=== PATIENT | female | born 1965 | race Caucasian/White ===

== ENCOUNTER 2018-07-04 14:21 | Inpatient (IN) | payer MEDICARE, MEDICAID ==
[2018-07-04 14:33] VITALS: BMI 27.4
--- NOTE | 2018-07-04 14:52 | ED PDOC ---
Arrival/HPI - General Chief Complaint: Palpitations Time Seen by Provider: 07/04/18 14:30 Historian: Patient - History of Present Illness Narrative History of Present Illness (Text): 07/04/18 14:48 52 year old female, with past history of somatoform disorder, presents to the ED accompanied by family for evaluation of palpitations since last week. As per family, patient recently had an increase in medication dosage, Clozapine 75mg 125mg and has been experiencing the symptoms since then. Patient additionally reports headache and constipation. Patient denies any fevers, chills, dizziness, chest pain, shortness of breath, dyspnea on exertion, diaphoresis, nausea, vomiting, diarrhea, back pain, neck pain, or any other complaints. Time/Duration: 1 week Symptom Onset: Gradual Symptom Course: Unchanged Activities at Onset: Light Context: Home Past Medical History - Provider Review Nursing Documentation Reviewed: Yes - Infectious Disease Hx of Infectious Diseases: None - Tetanus Immunization Tetanus Immunization: Unknown - Cardiac Hx Pacemaker: No - Pulmonary Hx Tuberculosis: No - Neurological Hx Paralysis: No - HEENT Hx HEENT Disorder: No Hx Blind: No Hx Cataracts: No Hx Deafness: No Hx Difficulty Chewing: No Hx Epistaxis: No Hx Glaucoma: No Hx Macular Degeneration: No - Renal Hx Renal Failure: No - Endocrine/Metabolic Hx Hyperthyroidism: No Hx Hypothyroidism: No - Hematological/Oncological Hx Blood Transfusions: No Hx Blood Transfusion Reaction: No - Integumentary Hx Dermatological Disorder: No Hx Basal Cell Carcinoma: No Hx Eczema: No Hx Melanoma: No Hx Psoriasis: No Hx Squamous Cell Carcinoma: No - Musculoskeletal/Rheumatological Hx Musculoskeletal Disorders: No - Gastrointestinal Hx Gastrointestinal Disorders: No Hx Crohn's Disease: No Hx Diverticulitis: No Hx Gastroesophageal Reflux: Yes Hx Gastrointestinal Ulcer: No Hx Liver Failure: No - Genitourinary/Gynecological Hx Genitourinary Disorders: No Hx Reproductive Disorders: No - Psychiatric Hx Emotional Abuse: No Hx Physical Abuse: No Hx Schizophrenia: Yes Hx Substance Use: No - Past Surgical History Past Surgical History: No Previous - Surgical History Hx Amputation: No Hx Appendectomy: No Hx Cholecystectomy: No Hx Gastric Bypass Surgery: No Hx Hysterectomy: No Hx Inguinal Hernia Repair: No Hx Joint Replacement: No Hx Kidney Transplant: No Hx Liver Transplant: No Hx Mastectomy: No Hx Open Heart Surgery: No Hx Orthopedic Surgery: No Hx Splenectomy: No Hx Valve Replacement: No - Anesthesia Hx Anesthesia Reactions: No Hx Malignant Hyperthermia: No - Suicidal Assessment Feels Threatened In Home Enviroment: No Family/Social History - Physician Review Nursing Documentation Reviewed: Yes Family/Social History: No Known Family HX Smoking Status: Never Smoked Hx Alcohol Use: No Hx Substance Use: No Hx Substance Use Treatment: No Allergies/Home Meds Allergies/Adverse Reactions: Allergies No Known Allergies Allergy (Verified 11/10/11 16:36) Home Medications: Home Meds Medication Instructions Recorded Confirmed Acetaminophen/Butalbital/Caf 1 tab PO Q6H PRN 07/04/18 07/04/18 [Fioricet] Clozapine [Clozapine Odt] 1 tab PO HS 07/04/18 07/04/18 Divalproex [Depakote DR] 1 tab PO Q12H 07/04/18 07/04/18 Gabapentin [Neurontin] 125 mg PO HS 07/04/18 07/04/18 LORazepam [Ativan] 1 tab PO BID 07/04/18 07/04/18 Lactulose [Generlac] 10 g PO PRN PRN 07/04/18 07/04/18 Venlafaxine [Effexor] 1 tab PO DAILY 07/04/18 07/04/18 traZODone [Desyrel] 1 tab PO HS PRN 07/04/18 07/04/18 Review of Systems - Physician Review All systems were reviewed & negative as marked: Yes - Review of Systems Constitutional: absent: Fevers Respiratory: Cough. absent: SOB Cardiovascular: Palpitations. absent: Chest Pain Gastrointestinal: absent: Abdominal Pain, Diarrhea, Nausea, Vomiting Genitourinary Female: absent: Dysuria, Urine Output Changes Musculoskeletal: absent: Back Pain, Neck Pain Skin: absent: Rash Neurological: Headache. absent: Dizziness, Focal Weakness, Speech Changes Endocrine: absent: Diaphoresis Hemo/Lymphatic: absent: Adenopathy Psychiatric: absent: Anxiety Physical Exam - Physical Exam Narrative Physical Exam (Text): 07/04/18 14:54 Gen: VS reviewed, alert, well developed, well nourished, nontoxic, mild distress. ENT: normal pharynx. Eye: EOMI, PERRL. Neck: no JVD, supple, no adenopathy. CV: regular rate, regular rhythm, no rubs, no murmur, no gallops, S1, S2, pulses equal and strong. Pulm: no distress, clear to auscultation, no wheeze, no rhonchi, breath sounds equal, no rales. Abd: soft, nontender, no guarding, no rebound, no rigidity, normal bowel sounds. Ext: no edema. Skin: good color, no rash, no cyanosis. Psych: responds appropriately to questions, bizarre affect. Neuro: oriented x 3, CN2-12 intact grossly, motor intact, sensation intact. Vital Signs Reviewed: Yes Vital Signs Temp Pulse Resp BP Pulse Ox 07/04/18 14:33 97.8 F 63 18 132/80 98 Temperature: Afebrile Blood Pressure: Normal Pulse: Regular Respiratory Rate: Normal Appearance: Positive for: Well-Appearing, Non-Toxic, Comfortable Pain Distress: None Mental Status: Positive for: Alert and Oriented X 3 Medical Decision Making ED Course and Treatment: 07/04/18 14:44 Impression: 52 year old female presents to the Emergency department for evaluation of palpitations. Plan: -- EKG -- Labs -- Chest X-ray -- X-ray Abdomen -- Reassess and disposition Prior Visits: Notes and results from previous visits were reviewed. Progress Notes: 07/04/18 16:[address] butler to her service. patient to be admitted for chest pain and palpitations, rule out acs. Patient remained chest pain free throughout ED course. - RAD Interpretation Radiology Orders: 07/04/18 14:45 CHEST PORTABLE [RAD] Stat 07/04/18 14:46 ABDOMEN (FLAT PLATE) 1VIEW [RAD] Stat Map Plotter: ED Physician - EKG Interpretation EKG Interpretation (Text): 07/04/18 15:26 ekg my read: sinus rhythm at 80 bpm, nml qrs, nml axis, nonspecific t wave abn Interpreted by ED Physician: Yes - Scribe Statement The provider has reviewed the documentation as recorded by the Hollyibpadmini Garza. All medical record entries made by the Hollyibe were at my direction and personally dictated by me. I have reviewed the chart and agree that the record accurately reflects my personal performance of the history, physical exam, medical decision making, and the department course for this patient. I have also personally directed, reviewed, and agree with the discharge instructions and disposition. Disposition/Present on Arrival - Present on Arrival Any Indicators Present on Arrival: No History of DVT/PE: No History of Uncontrolled Diabetes: No Urinary Catheter: No History of Decub. Ulcer: No History Surgical Site Infection Following: None - Disposition Have Diagnosis and Disposition been Completed?: Yes Diagnosis: Chest pain Disposition: HOSPITALIZED Disposition Time: 16:10 Patient Plan: Observation Patient Problems: Current Active Problems Problem Status Onset Chest pain Acute Condition: STABLE Discharge Instructions (ExitCare): Chest Pain (ED) Referrals: Cyndi Butler MD [Primary Care Provider] - Follow up with primary Forms: [facility] (Croatian)
[2018-07-04 15:07] LABS: BASO # 0.01 K/mm3 (0.0-2.0); BASO % 0.1 % (0.0-3.0); EOS % 0.1 % (1.5-5.0); HEMOGLOBIN 13.2 g/dL (12.0-16.0); LYMPH # 1.3 (1.2-3.4); LYMPH % 17.2 % (22.0-35.0); MEAN CELL VOLUME 92.3 fl (80.0-105.0); MEAN CORPUSCULAR HEMOGLOBIN 30.1 pg (25.0-35.0); MEAN CORPUSCULAR HGB CONC 32.6 g/dl (31.0-37.0); MEAN PLATELET VOLUME 9.8 fl (7.0-11.0); MONO # 0.5 (0.1-0.6); MONO % 6.6 % (1.0-6.0); RBC 4.39 10^6/uL (3.5-6.1); RED CELL DISTRIBUTION WIDTH 14.2 % (11.5-14.5); WHITE BLOOD COUNT 7.4 10^3/uL (4.5-11.0)
[2018-07-04 15:10] LABS: ALB/GLOB RATIO 1.3 (1.1-1.8); ALBUMIN 4.5 g/dL (3.0-4.8); ALT/SGPT 44 U/L (7-56); AST/SGOT 30 U/L (14-36); BLOOD UREA NITROGEN 18 mg/dL (7-21); CALCIUM 9.7 mg/dL (8.4-10.5); GFR NON-AFRICAN AMERICAN > 60; LIPASE 40 U/L (23-300)
[2018-07-04 15:11] LABS: D DIMER < 200 ng/mlDDU (0-243); INR 1.05; PARTIAL THROMBOPLASTIN TIME 32.2 Seconds (26.9-38.3); PROTHROMBIN TIME 11.6 SECONDS (9.4-12.5)
[2018-07-04 15:21] LABS: TROPONIN I < 0.01 ng/mL
--- NOTE | 2018-07-04 17:58 | CARD ---
APPROVED REPORT Date of service: 07/04/2018 EKG Measurement Heart [id number] <Conclusion> Sinus rhythm with marked sinus arrhythmia NDSTT abnormalities Borderline ECG
--- NOTE | 2018-07-04 18:07 | RAD ---
Date of service: 07/04/2018 PROCEDURE: CHEST RADIOGRAPH, 1 VIEW HISTORY: chest pain COMPARISON: 01/03/2013 FINDINGS: LUNGS: Clear. PLEURA: No pneumothorax or pleural fluid seen. CARDIOVASCULAR: No aortic atherosclerotic calcification present. Normal. OSSEOUS STRUCTURES: No significant abnormalities. VISUALIZED UPPER ABDOMEN: Normal. OTHER FINDINGS: None. IMPRESSION: No active disease.No significant interval change compared to the prior examination(s).
--- NOTE | 2018-07-04 18:11 | RAD ---
Date of service: 07/04/2018 HISTORY: Constipation COMPARISON: None available. TECHNIQUE: 1 view obtained. FINDINGS: BOWEL: Normal. No obstruction. No free air. BONES: Normal. OTHER FINDINGS: None. IMPRESSION: No significant or acute findings to account for/ related to the clinical presentation.
[2018-07-04 22:51] LABS: IRON 100 ug/dL (45-180)
[2018-07-04 22:53] LABS: HDL CHOLESTEROL 82 mg/dL (29-60)
[2018-07-04 23:01] LABS: % IRON SATURATION 24 % (20-55); TOTAL IRON BINDING CAPACITY 424 ug/dL (265-497)
[2018-07-04 23:03] LABS: LDL CHOLESTEROL 132 mg/dL (0-129)
[2018-07-04 23:04] LABS: TROPONIN I < 0.01 ng/mL
[2018-07-04 23:09] LABS: CK MB% 1.5 % (2.5-3.0); CK-MB 5.5 ng/mL (0.0-3.6)
[2018-07-05 04:38] LABS: PH,URINE 6.5 (4.7-8.0); URINE APPEARANCE SL CLOUDY (CLEAR); URINE BILIRUBIN NEGATIVE (NEGATIVE); URINE BLOOD NEGATIVE (NEGATIVE); URINE COLOR YELLOW (YELLOW); URINE GLUCOSE (UA) NEGATIVE (NEGATIVE); URINE LEUKOCYTE ESTERASE SMALL Leu/uL (NEGATIVE); URINE PROTEIN NEGATIVE mg/dL (<30 mg/dL); URINE UROBILINOGEN 0.2 E.U./dL (<1 E.U./dL)
[2018-07-05 04:55] LABS: URINE BACTERIA OCC /hpf; URINE RBC 0 - 2 /hpf (0-2)
[2018-07-05 07:13] LABS: HEMOGLOBIN 12.5 g/dL (12.0-16.0); MEAN CELL VOLUME 92.2 fl (80.0-105.0); MEAN CORPUSCULAR HEMOGLOBIN 29.6 pg (25.0-35.0); MEAN CORPUSCULAR HGB CONC 32.1 g/dl (31.0-37.0); MEAN PLATELET VOLUME 9.6 fl (7.0-11.0); RBC 4.22 10^6/uL (3.5-6.1); RED CELL DISTRIBUTION WIDTH 14.6 % (11.5-14.5); WHITE BLOOD COUNT 7.6 10^3/uL (4.5-11.0)
[2018-07-05 07:25] LABS: BLOOD UREA NITROGEN 10 mg/dL (7-21); CALCIUM 9.3 mg/dL (8.4-10.5); GFR NON-AFRICAN AMERICAN > 60
--- NOTE | 2018-07-05 08:17 | HP ---
DATE OF EXAM: 07/04/2018 CHIEF COMPLAINT: Palpitation. HISTORY OF PRESENT ILLNESS: Ms. Francheska Stevens is a 52 years old female with past medical history of somatoform disorder, psychosis and schizophrenia who came to the emergency department accompanied with family for evaluation of palpitation since last week. As per family, the patient recently had increase in the medication dosage of clonazepam from 75 mg to [address] Valentino, appearing symptomatic since then. Patient additionally reports headache and constipation. Denies any fever, chills or dizziness. No chest pain, shortness of breath, dyspnea on exertion, diaphoresis, hematuria, or hematochezia. PAST MEDICAL HISTORY: As above. Gastroesophageal reflux disease. FAMILY HISTORY: Father and mother noncontributory. SOCIAL HISTORY: No smoking, no drugs, no ethanol. ALLERGIES: PATIENT IS NOT ALLERGIC WITH ANY MEDICATION. HOME MEDICATIONS: Duracid, clonazepam, Depakote, Neurontin, Ativan, lactulose, Effexor, trazodone. REVIEW OF SYSTEMS: Patient is seen around the bedside, looking comfortable except very anxious, has palpitation. No fever, no chills. No hematochezia. No headache, no dizziness. PHYSICAL EXAMINATION VITAL SIGNS: Temperature 97.8, pulse 63, respiratory 18, blood pressure 132/80, pulse oximetry 98%. HEENT: Head normocephalic, atraumatic. Eyes PERRLA. Extraocular muscles intact. Conjunctiva clear. Nose patent. NECK: Supple. No carotid bruit or thyromegaly. CHEST: Bilaterally symmetrical. HEART: S1, S2 positive. LUNGS: Clear to auscultation. ABDOMEN: Soft, bowel sounds normal. No organomegaly. EXTREMITIES: No edema, no cyanosis. NEUROLOGIC: Patient is awake, alert, follows simple commands. LABORATORY DATA: WBC 7.4, hemoglobin 13.2, hematocrit 40.5, platelets 256. Sodium 141, potassium 4.1, BUN 18, creatinine 0.5, glucose 153, troponin less than 0.01. ASSESSMENT AND PLAN: Ms. Francheska Stevens is a 52 years old lady with hyperglycemia, Dilantin level less than 3, patient has schizophrenia, gastroesophageal reflux disease, dyspepsia, migraine, came with palpitation, feeling not fine. Abdominal x-ray done. No significant or acute findings to account for related to the clinical presentation. Electrocardiogram studied by me. Chest x-ray; no active disease. No significant interval changes compared to the prior evaluation. Readmitted the patient. Started home medications. Psychiatric consult called with Dr. Thiago Valentino. Physical therapy. We will followup. Cyndi Butler MD [facility]
--- NOTE | 2018-07-05 12:18 | CP.PCM.CON ---
<Ping Marques - Last Filed: 07/05/18 16:37> History of Present Illness - History of Present Illness History of Present Illness: Gastroenterology Fellow/PGY6 Consult Note for Dr. Sanders 52 year old female with PMH of Somatoform disorder, Schizophrenia, Psychosis, and constipation presenting with palpitations. Patient and mother at bedside note onset of palpitations yesterday along with abdominal pain. Mother notes recent change to psychotropic one week ago in outpatient setting. Patient notes onset of lower abdominal pain after two formed bowel movements yesterday. Mother confirms it is similar to chronic intermittent bilateral lower abdominal pain that has been present most of patient 's adult life in association with constipation. Notes bowel movements are usually daily with intermittent bowel habit every 2-3 days that is relieved with Colace and prune juice as needed. Associated intermittent straining, small caliber stools, and incomplete evacuation. Mother confirms yesterday's bowel movements were after use of Colace due to no bowel movement for three days. Patient does not consume six serving of water and fiber daily. Denies nausea, vomiting, heartburn, acid reflux, indigestion, diarrhea, melena, hematochezia, unintentional weight loss, sick contacts, recent travel, or recent antibiotics. Prior EGD 12/2012 for similar symptoms documented in pathology report to show H pylori negative gastritis. [place] [facility] [place]. Family History- paternal uncle- stomach cancer, denies colon cancer Social History- denies tobacco, alcohol, illicit drug use Surgical History- right upper extremity ORIF Review of Systems - Review of Systems Review of Systems: 12-point review of systems negative except for as above Past Patient History - Infectious Disease Hx of Infectious Diseases: None - Tetanus Immunizations Tetanus Immunization: Unknown - Past Social History Smoking Status: Never Smoked - CARDIAC Hx Pacemaker: No - PULMONARY Hx Tuberculosis: No - NEUROLOGICAL HX Cerebrovascular Accident: No Hx Seizures: No - HEENT Hx HEENT Problems: No Hx Blind: No Hx Cataracts: No Hx Deafness: No Hx Difficulty Chewing: No Hx Epistaxis: No Hx Glaucoma: No Hx Macular Degeneration: No - RENAL Hx Renal Failure: No - ENDOCRINE/METABOLIC Hx Hyperthyroidism: No Hx Hypothyroidism: No - HEMATOLOGICAL/ONCOLOGICAL Hx Cancer: No Hx Human Immunodeficiency Virus (HIV): No - INTEGUMENTARY Hx Dermatological Problems: No Hx Basil Cell: No Hx Eczema: No Hx Melanoma: No Hx Psoriasis: No Hx Squamous Cell: No - MUSCULOSKELETAL/RHEUMATOLOGICAL Hx Falls: No - GASTROINTESTINAL Hx Gastrointestinal Disorders: No Hx Crohn's Disease: No Hx Diverticulitis: No Hx Gastroesophageal Reflux: Yes Hx Liver Failure: No - GENITOURINARY/GYNECOLOGICAL Hx Genitourinary Disorders: No - PSYCHIATRIC Hx Emotional Abuse: No Hx Physical Abuse: No Hx Schizophrenia: Yes Hx Substance Use: No - SURGICAL HISTORY Hx Amputation: No Hx Appendectomy: No Hx Cholecystectomy: No Hx Gastric Bypass Surgery: No Hx Hysterectomy: No Hx Joint Replacement: No Hx Kidney Transplant: No Hx Liver Transplant: No Hx Mastectomy: No Hx Open Heart Surgery: No Hx Orthopedic Surgery: No Hx Splenectomy: No Hx Valve Replacement: No - ANESTHESIA Hx Anesthesia Reactions: No Hx Malignant Hyperthermia: No Meds Allergies/Adverse Reactions: Allergies Allergy/AdvReac Type Severity Reaction Status Date / Time No Known Allergies Allergy Verified 11/10/11 16:36 - Medications Medications: Current Medications Clozapine (Clozaril) 100 mg PO HS [facility]; Protocol Last Admin: 07/04/18 21:57 Dose: 100 mg Divalproex Sodium (Depakote Dr(*Bid*)) 500 mg PO BID [facility]; Protocol Famotidine (Pepcid) 40 mg PO HS [facility] Last Admin: 07/05/18 01:05 Dose: 40 mg Gabapentin (Neurontin) 100 mg PO HS [facility]; Protocol Last Admin: 07/04/18 21:57 Dose: 100 mg Lorazepam (Ativan) 0.5 mg PO BID [facility]; Protocol Last Admin: 07/05/18 09:55 Dose: 0.5 mg Ondansetron HCl (Zofran Inj) 4 mg IVP Q6 PRN PRN Reason: Nausea/Vomiting Trazodone HCl (Desyrel) 50 mg PO HS [facility] Last Admin: 07/04/18 21:58 Dose: 50 mg Venlafaxine HCl (Effexor) 37.5 mg PO DAILY [facility] Last Admin: 07/05/18 09:55 Dose: 37.5 mg Physical Exam - Constitutional Appears: Non-toxic, No Acute Distress - Head Exam Head Exam: ATRAUMATIC, NORMOCEPHALIC - Eye Exam Eye Exam: EOMI, PERRL. absent: Scleral icterus Pupil Exam: absent: Miosis, Mydriatic - ENT Exam ENT Exam: Mucous Membranes Moist, Normal Oropharynx - Neck Exam Neck exam: Positive for: Full Rom, Normal Inspection - Respiratory Exam Respiratory Exam: Clear to Auscultation Bilateral. absent: Rales, Rhonchi, Wheezes - Cardiovascular Exam Cardiovascular Exam: RRR, +S1, +S2. absent: Gallop, Rubs - GI/Abdominal Exam GI & Abdominal Exam: Normal Bowel Sounds, Soft, Tenderness. absent: Distended, Firm, Guarding, Organomegaly, Rebound, Rigid Additional comments: bilateral lower quadrant tenderness to palpation - Extremities Exam Extremities exam: Positive for: normal inspection - Neurological Exam Neurological exam: Alert - Psychiatric Exam Psychiatric exam: Anxious - Skin Skin Exam: Dry, Intact, Normal Color, Warm Results - Vital Signs Recent Vital Signs: Last Vital Signs Temp 98 F 07/05/18 12:00 Pulse 103 H 07/05/18 12:00 Resp 20 07/05/18 12:00 BP 111/76 07/05/18 12:00 Pulse Ox 98 07/05/18 05:09 - Labs Result Diagrams: 07/05/18 06:45 07/05/18 06:45 Labs: Laboratory Results - last 24 hr 07/04/18 07/04/18 07/04/18 14:50 14:50 14:50 WBC 7.4 RBC 4.39 Hgb 13.2 Hct 40.5 MCV 92.3 MCH 30.1 MCHC 32.6 RDW 14.2 Plt Count 256 MPV 9.8 Neut % (Auto) 76.0 H Lymph % (Auto) 17.2 L Ashe % (Auto) 6.6 H Eos % (Auto) 0.1 L Baso % (Auto) 0.1 Lymph # (Auto) 1.3 Ashe # (Auto) 0.5 Eos # (Auto) 0.0 Baso # (Auto) 0.01 Absolute Neuts (auto) 5.65 PT 11.6 INR 1.05 APTT 32.2 D-Dimer, Quantitative < 200 Sodium 141 Potassium 4.1 Chloride 106 Carbon Dioxide 25 Anion Gap 14 BUN 18 Creatinine 0.5 L Est GFR ( Amer) > 60 Est GFR (Non-Af Amer) > 60 POC Glucose (mg/dL) Random Glucose 100 Calcium 9.7 Magnesium 2.2 Iron TIBC % Saturation Total Bilirubin 0.3 AST 30 ALT 44 Alkaline Phosphatase 63 Lactate Dehydrogenase Total Creatine Kinase CK-MB (CK-2) CK-MB (CK-2) % Troponin I < 0.01 Total Protein 7.8 Albumin 4.5 Globulin 3.3 Albumin/Globulin Ratio 1.3 Triglycerides Cholesterol LDL Cholesterol Direct HDL Cholesterol Lipase 40 TSH 3rd Generation Urine Color Urine Appearance Urine pH Ur Specific Mozier Urine Protein Urine Glucose (UA) Urine Ketones Urine Blood Urine Nitrate Urine Bilirubin Urine Urobilinogen Ur Leukocyte Esterase Urine RBC Urine WBC Ur Epithelial Cells Urine Bacteria Phenytoin 07/04/18 07/04/18 07/04/18 16:00 16:00 19:34 WBC RBC Hgb Hct MCV MCH MCHC RDW Plt Count MPV Neut % (Auto) Lymph % (Auto) Ashe % (Auto) Eos % (Auto) Baso % (Auto) Lymph # (Auto) Ashe # (Auto) Eos # (Auto) Baso # (Auto) Absolute Neuts (auto) PT INR APTT D-Dimer, Quantitative Sodium Potassium Chloride Carbon Dioxide Anion Gap BUN Creatinine Est GFR ( Amer) Est GFR (Non-Af Amer) POC Glucose (mg/dL) 163 H Random Glucose Calcium Magnesium Iron TIBC % Saturation Total Bilirubin AST ALT Alkaline Phosphatase Lactate Dehydrogenase Total Creatine Kinase CK-MB (CK-2) CK-MB (CK-2) % Troponin I Total Protein Albumin Globulin Albumin/Globulin Ratio Triglycerides Cholesterol LDL Cholesterol Direct HDL Cholesterol Lipase TSH 3rd Generation 1.31 Urine Color Urine Appearance Urine pH Ur Specific Mozier Urine Protein Urine Glucose (UA) Urine Ketones Urine Blood Urine Nitrate Urine Bilirubin Urine Urobilinogen Ur Leukocyte Esterase Urine RBC Urine WBC Ur Epithelial Cells Urine Bacteria Phenytoin < 3 L 07/04/18 07/04/18 07/05/18 22:30 22:30 04:25 WBC RBC Hgb Hct MCV MCH MCHC RDW Plt Count MPV Neut % (Auto) Lymph % (Auto) Ashe % (Auto) Eos % (Auto) Baso % (Auto) Lymph # (Auto) Ashe # (Auto) Eos # (Auto) Baso # (Auto) Absolute Neuts (auto) PT INR APTT D-Dimer, Quantitative Sodium Potassium Chloride Carbon Dioxide Anion Gap BUN Creatinine Est GFR ( Amer) Est GFR (Non-Af Amer) POC Glucose (mg/dL) Random Glucose Calcium Magnesium Iron 100 TIBC 424 % Saturation 24 Total Bilirubin AST ALT Alkaline Phosphatase Lactate Dehydrogenase 485 Total Creatine Kinase 377 H CK-MB (CK-2) 5.5 H CK-MB (CK-2) % 1.5 L Troponin I < 0.01 Total Protein Albumin Globulin Albumin/Globulin Ratio Triglycerides 130 Cholesterol 267 H LDL Cholesterol Direct 132 H HDL Cholesterol 82 H Lipase TSH 3rd Generation Urine Color Yellow Urine Appearance Sl cloudy Urine pH 6.5 Ur Specific Mozier <= 1.005 Urine Protein Negative Urine Glucose (UA) Negative Urine Ketones Negative Urine Blood Negative Urine Nitrate Negative Urine Bilirubin Negative Urine Urobilinogen 0.2 Ur Leukocyte Esterase Small H Urine RBC 0 - 2 Urine WBC 2 - 5 Ur Epithelial Cells 3 - 4 Urine Bacteria Occ Phenytoin 07/05/18 07/05/18 07/05/18 06:45 06:45 06:45 WBC 7.6 RBC 4.22 Hgb 12.5 Hct 38.9 MCV 92.2 MCH 29.6 MCHC 32.1 RDW 14.6 H Plt Count 256 MPV 9.6 Neut % (Auto) Lymph % (Auto) Ashe % (Auto) Eos % (Auto) Baso % (Auto) Lymph # (Auto) Ashe # (Auto) Eos # (Auto) Baso # (Auto) Absolute Neuts (auto) PT INR APTT D-Dimer, Quantitative Sodium 141 Potassium 3.5 L Chloride 106 Carbon Dioxide 26 Anion Gap 12 BUN 10 Creatinine 0.5 L Est GFR ( Amer) > 60 Est GFR (Non-Af Amer) > 60 POC Glucose (mg/dL) Random Glucose 92 Calcium 9.3 Magnesium Iron TIBC % Saturation Total Bilirubin AST ALT Alkaline Phosphatase Lactate Dehydrogenase Total Creatine Kinase CK-MB (CK-2) CK-MB (CK-2) % Troponin I Total Protein Albumin Globulin Albumin/Globulin Ratio Triglycerides Cholesterol LDL Cholesterol Direct HDL Cholesterol Lipase TSH 3rd Generation 2.68 Urine Color Urine Appearance Urine pH Ur Specific Mozier Urine Protein Urine Glucose (UA) Urine Ketones Urine Blood Urine Nitrate Urine Bilirubin Urine Urobilinogen Ur Leukocyte Esterase Urine RBC Urine WBC Ur Epithelial Cells Urine Bacteria Phenytoin Assessment & Plan - Assessment and Plan (Free Text) Assessment: 52 year old female with PMH of Somatoform disorder, Schizophrenia, Psychosis, and constipation presenting with palpitations. GI consultation for abdominal pain. Prior EGD 12/2012 for similar symptoms documented in pathology report to show H pylori negative gastritis. [place] [facility] [place]. Plan: -likely related to constipation -rule out acute pathology given persistent pain on evaluation and physical exam -ordered CT A/P PO/IV contrast -prior CT A/P 12/2012- constipation, no acute pathology -recommend bowel regimen- Miralax daily -counselled on increased fiber and water intake -will follow clinical course <Aydin Sanders V - Last Filed: 07/05/18 23:34> Meds - Medications Medications: Current Medications Atenolol (Tenormin) 25 mg PO DAILY [facility] Last Admin: 07/05/18 14:14 Dose: 25 mg Atorvastatin Calcium (Lipitor) 20 mg PO DIN [facility] Last Admin: 07/05/18 17:51 Dose: 20 mg Clozapine (Clozaril) 100 mg PO HS [facility]; Protocol Last Admin: 07/05/18 22:01 Dose: 100 mg Divalproex Sodium (Depakote Dr(*Bid*)) 500 mg PO BID [facility]; Protocol Last Admin: 07/05/18 17:51 Dose: 500 mg Famotidine (Pepcid) 40 mg PO HS [facility] Last Admin: 07/05/18 22:01 Dose: 40 mg Gabapentin (Neurontin) 100 mg PO HS [facility]; Protocol Last Admin: 07/05/18 22:01 Dose: 100 mg Lorazepam (Ativan) 0.5 mg PO BID [facility]; Protocol Last Admin: 07/05/18 17:52 Dose: 0.5 mg Ondansetron HCl (Zofran Inj) 4 mg IVP Q6 PRN PRN Reason: Nausea/Vomiting Trazodone HCl (Desyrel) 50 mg PO HS [facility] Last Admin: 07/05/18 22:01 Dose: 50 mg Venlafaxine HCl (Effexor) 37.5 mg PO DAILY [facility] Last Admin: 07/05/18 09:55 Dose: 37.5 mg Results - Vital Signs Recent Vital Signs: Last Vital Signs Temp 98.1 F 07/05/18 18:00 Pulse 68 07/05/18 22:00 Resp 20 07/05/18 18:00 BP 122/84 07/05/18 18:00 Pulse Ox 99 07/05/18 18:00 - Labs Result Diagrams: 07/05/18 06:45 07/05/18 06:45 Labs: Laboratory Results - last 24 hr 07/04/18 07/04/18 07/05/18 22:30 22:30 04:25 WBC RBC Hgb Hct MCV MCH MCHC RDW Plt Count MPV Sodium Potassium Chloride Carbon Dioxide Anion Gap BUN Creatinine Est GFR ( Amer) Est GFR (Non-Af Amer) Random Glucose Hemoglobin A1c 5.6 Calcium Vitamin B12 608 Folate 17.3 TSH 3rd Generation Urine Color Yellow Urine Appearance Sl cloudy Urine pH 6.5 Ur Specific Mozier <= 1.005 Urine Protein Negative Urine Glucose (UA) Negative Urine Ketones Negative Urine Blood Negative Urine Nitrate Negative Urine Bilirubin Negative Urine Urobilinogen 0.2 Ur Leukocyte Esterase Small H Urine RBC 0 - 2 Urine WBC 2 - 5 Ur Epithelial Cells 3 - 4 Urine Bacteria Occ 07/05/18 07/05/18 07/05/18 06:45 06:45 06:45 WBC 7.6 RBC 4.22 Hgb 12.5 Hct 38.9 MCV 92.2 MCH 29.6 MCHC 32.1 RDW 14.6 H Plt Count 256 MPV 9.6 Sodium 141 Potassium 3.5 L Chloride 106 Carbon Dioxide 26 Anion Gap 12 BUN 10 Creatinine 0.5 L Est GFR ( Amer) > 60 Est GFR (Non-Af Amer) > 60 Random Glucose 92 Hemoglobin A1c Calcium 9.3 Vitamin B12 Folate TSH 3rd Generation 2.68 Urine Color Urine Appearance Urine pH Ur Specific Mozier Urine Protein Urine Glucose (UA) Urine Ketones Urine Blood Urine Nitrate Urine Bilirubin Urine Urobilinogen Ur Leukocyte Esterase Urine RBC Urine WBC Ur Epithelial Cells Urine Bacteria Attending/Attestation - Attestation I have fully participated in the care of the patient.: Yes I have reviewed all pertinent clinical information: Yes Notes (Text): The CT scan was reviewed. Discussed with the nursing staff and also with the GI fellow the CT showed a significant stool throughout the colon and a large distended bladder. Patient did void after the return from the CAT scan. The bladder scan done subsequently did not reveal any significant residue. Patient has been placed on MiraLAX . If there is no significant bowel movement,we will consider offering a gallon of GoLYTELY 07/05/18 23:30
[2018-07-05] MEDS ORDERED: Barium Sulfate Susp 2.1% w/v, 2.0% w/w 450 mL Bottle PO ONE (12:21)
[2018-07-05 13:29] LABS: FOLATE 17.3 ng/mL
[2018-07-05] MEDS ORDERED: Potassium Chloride 20 mEq ER Tab PO ONE (14:49)
[2018-07-05] MEDS ORDERED: Iohexol 350 MG/100 ML VIAL ONE (15:59)
--- NOTE | 2018-07-05 17:04 | CT ---
Date of service: 07/05/2018 PROCEDURE: CT Abdomen and Pelvis with contrast HISTORY: abdominal pain COMPARISON: None. TECHNIQUE: Contrast dose: 100 cc of Omni 350 Radiation dose: Total exam DLP = 479.41 mGy-cm. This CT exam was performed using one or more of the following dose reduction techniques: Automated exposure control, adjustment of the mA and/or kV according to patient size, and/or use of iterative reconstruction technique. FINDINGS: LOWER THORAX: Unremarkable. LIVER: Unremarkable. No gross lesion or ductal dilatation. GALLBLADDER AND BILE DUCTS: Unremarkable. PANCREAS: Unremarkable. No gross lesion or ductal dilatation. SPLEEN: Unremarkable. ADRENALS: Unremarkable. No mass. There is a 14 mm left adrenal nodule. KIDNEYS AND URETERS: Unremarkable. No hydronephrosis. No solid mass. VASCULATURE: Unremarkable. No aortic aneurysm. No aortic atherosclerotic calcification or mural plaque present. BOWEL: Unremarkable. No obstruction. No gross mural thickening. APPENDIX: Normal appendix. PERITONEUM: Unremarkable. No free fluid. No free air. LYMPH NODES: Unremarkable. No enlarged lymph nodes. BLADDER: Unremarkable. REPRODUCTIVE: Unremarkable. BONES: No acute fracture. OTHER FINDINGS: None. IMPRESSION: Unremarkable contrast enhanced CT of the abdomen and pelvis.
[2018-07-05] MEDS: Divalproex 500 mg DR(BID formulation) PO SCH (17:51)
--- NOTE | 2018-07-05 20:26 | PN ---
DATE: 07/05/2018 SUBJECTIVE: The patient is a 52-year-old female. The patient was seen and examined at the bedside on 07/05/2018. The patient is lying comfortably in the bed. Mother is at the bedside. Still sometimes having palpitation, sometimes having abdominal pain. No fever. No chills. No hematuria or hematochezia. No headache or dizziness. No chest pain or palpitation. PHYSICAL EXAMINATION: VITAL SIGNS: Temperature 98, pulse 102, highest pulse is 113, blood pressure 114/80, respiratory rate 20. HEENT: Head: Normocephalic, atraumatic. Eyes: PERRLA. Extraocular muscles intact. Conjunctiva clear. Nose patent. Mucous membranes moist. NECK: Supple. No carotid bruit or thyromegaly. CHEST: Bilaterally symmetrical. HEART: S1, S2 positive. LUNGS: Clear to auscultation. ABDOMEN: Soft, bowel sounds present. No organomegaly. EXTREMITIES: No edema, no cyanosis. NEUROLOGIC: The patient is awake and alert. Moving all 4 extremities. No focal deficits. MEDICATIONS: Ativan, clozapine, Depakote, trazodone, Effexor, Lipitor, Neurontin, Pepcid, atenolol, Zofran. LABORATORY DATA: White blood cells 7.6, hemoglobin 12.5, hematocrit 38.9, platelets 256. Sodium 141, potassium 3.5, BUN 10, creatinine 0.5, glucose 92. ASSESSMENT AND PLAN: Ms. Francheska Stevens is a 52-year-old lady with hypokalemia, replaced; hyperglycemia, hypercholesterolemia, abnormal CK-MB, history of schizophrenia. Consult called with Dr. Parsons for palpitation and tachycardia. Spoke to Dr. Dwyer cardio and Gastroenterology also for abdominal pain. Dr. Valentino is on the case, awaiting for his input. The patient has schizophrenia, gastroesophageal reflux disease, migraine, palpitation, abdominal pain, getting better but still there. Out of bed. Physical therapy. Gastrointestinal prophylaxis. Repeat labs. We will follow up. Cyndi Butler MD SOP[facility]
--- NOTE | 2018-07-06 00:06 | CON ---
DATE OF CONSULTATION: 07/05/2018 This consultation was being dictated without the aid of access to medical records, as both the computer and the dictation system ([employer]) are inaccessible/not working/yet again. HISTORY OF PRESENT ILLNESS: The patient is a 52-year-old female, well known to me, who had just returned to my service after a 6-year hiatus because she had been hospitalized at a [facility]. She now spends her weekends in a residential, attends a day program, goes home for weekends. She has a long history of somatization amongst others in an unfortunate way of redirecting whenever emotional distress she has. She can also be attention seeking. The patient presently is seeing a therapist, Floridalma Rothman. The medication that she has been maintained on, most recently, have not being given to her by Dr. Newton at the [facility] she attends are lorazepam 1 mg, Cogentin 1 mg b.i.d., Effexor 37.5 mg a.m., trazodone 50 mg at bedtime, gabapentin 200 mg t.i.d., Depakote 500 mg b.i.d., clozapine 125 mg daily. She had been hospitalized at [facility] on 05/05/2008 because of a relapse and was hospitalized for 2 weeks. They had stopped her medications, and she became more depressed and anxious. The patient also has a developmental delay, although she has been able to work at jobs many years ago. She has a concerned family including her mother and two sisters. Presently, the patient has a constrained affect, is complaining of generalized pain, but more specifically also in her abdomen and complaining of palpitations. Her mother informs me that throughout her several years stay in [place], she also had multiple aches, pains, etc. which she had before hospitalization. The unfortunate reality is that we are obligated to evaluate this patient keeping in mind that somatization is unfortunately a, oftentimes, major manifestation of her illness. 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 We will continue to monitor her with you. Thiago Valentino MD/ PhD
--- NOTE | 2018-07-06 01:43 | CON ---
DATE: 07/05/2018 LOCATION: The patient is in room 275, bed 2. REASON FOR CONSULTATION: Palpitations, tachycardia, history of high cholesterol. HISTORY OF PRESENT ILLNESS: A 52-year-old female that was brought to the emergency room with the history that patient was feeling sweating, shaking, and headache along with she was found to have sinus tachycardia. The patient also complained of palpitations. The patient is known case of high cholesterol and psychiatric problems, which included somatoform disorder, psychosis, and schizophrenia. The patient has been under of Dr. Valentino, psychiatrist. PAST MEDICAL HISTORY: Positive for high cholesterol, psychiatric problems, somatoform disorder, psychosis, schizophrenia, gastroesophageal reflux disease. SURGICAL HISTORY: The patient has surgery on the right elbow for fracture. PERSONAL HISTORY: Denies smoking. Denies drinking. ALLERGIES: NO KNOWN ALLERGIES. FAMILY HISTORY: Mother has high blood pressure. LIST OF HOME MEDICATIONS: The patient is on Clonazepam, Depakote, Neurontin, Ativan, Duracid, lactulose, Effexor, trazodone. REVIEW OF SYSTEMS: All the systems were reviewed, positives mentioned in the history and others were negative. PHYSICAL EXAMINATION VITAL SIGNS: Blood pressure 122/84, respirations 20, pulse 78, earlier pulse was 102 and 103, temperature 98.1. HEENT: Head is normocephalic. Eyes; pupils normal. Conjunctivae normal. Nose and throat normal. NECK: JVP low. Carotid equal. THORAX: AP diameter normal. LUNGS: Clear. CARDIOVASCULAR: S1, S2. ABDOMEN: Soft. No tenderness. No organomegaly. Bowel sounds normal. EXTREMITIES: No clubbing. No cyanosis. LABORATORY DATA: WBC 7.6, hemoglobin 12.5, hematocrit 38.9, platelet 226. Sodium 141, potassium 3.5, BUN 10, creatinine 0.5, total CPK 377. Troponin less than 0.01. Cholesterol 267, triglyceride 130, TSH 2.68. Chest x-ray; no active disease. EKG showed sinus rhythm with sinus arrhythmia, nonspecific ST-T changes. When the patient walks in the room she gets tachycardia, heart rate goes up to 120, 130. DIAGNOSES: Palpitations, high cholesterol, gastroesophageal reflux disease, psychiatric problems, history of somatoform disorder, psychosis, schizophrenia, hypokalemia. PLAN: The patient is already given potassium 20 mEq one dose. Started Lipitor 20 mg daily. Gabapentin 100 mg at bedtime, Pepcid 40 mg at bedtime. The patient is on Clozaril 100 mg at bedtime, Depakote 500 mg b.i.d., trazodone 50 mg bedtime, Effexor 37.5 mg p.o. daily. Since the patient has palpitation and also tachycardia, would add atenolol 25 mg p.o. daily starting today. Will order an echocardiogram and will do a lying down stress test also and IV Lexiscan stress test and will follow with you. Tom Dwyer MD
--- NOTE | 2018-07-06 06:49 | CP.PCM.PN ---
Subjective - Date & Time of Evaluation Date of Evaluation: 07/06/18 Time of Evaluation: 06:49 - Subjective Subjective: Tessa Amor, PGY2, GI Objective - Vital Signs/Intake and Output Vital Signs (last 24 hours): Temp Pulse Resp BP Pulse Ox 98.3 F 88 20 94/62 L 98 07/06/18 05:45 07/06/18 05:45 07/06/18 05:45 07/06/18 05:45 07/06/18 05:45 Intake and Output: 07/05/18 07/06/18 18:59 06:59 Intake Total 120 Balance 120 - Medications Medications: Current Medications Atenolol (Tenormin) 25 mg PO DAILY [facility] Last Admin: 07/05/18 14:14 Dose: 25 mg Atorvastatin Calcium (Lipitor) 20 mg PO DIN [facility] Last Admin: 07/05/18 17:51 Dose: 20 mg Clozapine (Clozaril) 100 mg PO HS [facility]; Protocol Last Admin: 07/05/18 22:01 Dose: 100 mg Divalproex Sodium (Depakote Dr(*Bid*)) 500 mg PO BID [facility]; Protocol Last Admin: 07/05/18 17:51 Dose: 500 mg Famotidine (Pepcid) 40 mg PO HS [facility] Last Admin: 07/05/18 22:01 Dose: 40 mg Gabapentin (Neurontin) 100 mg PO HS [facility]; Protocol Last Admin: 07/05/18 22:01 Dose: 100 mg Lorazepam (Ativan) 0.5 mg PO BID [facility]; Protocol Last Admin: 07/05/18 17:52 Dose: 0.5 mg Ondansetron HCl (Zofran Inj) 4 mg IVP Q6 PRN PRN Reason: Nausea/Vomiting Polyethylene Glycol (Miralax) 17 gm PO DAILY [facility] Trazodone HCl (Desyrel) 50 mg PO HS [facility] Last Admin: 07/05/18 22:01 Dose: 50 mg Venlafaxine HCl (Effexor) 37.5 mg PO DAILY [facility] Last Admin: 07/05/18 09:55 Dose: 37.5 mg - Labs Labs: 07/05/18 06:45 07/05/18 06:45 PT 11.6 SECONDS (9.4-12.5) 07/04/18 14:50 INR 1.05 07/04/18 14:50 APTT 32.2 Seconds (26.9-38.3) 07/04/18 14:50
[2018-07-06] MEDS ORDERED: Aminophylline 25 mg/ml Inj ONE (08:58)
--- NOTE | 2018-07-06 08:58 | CP.PCM.PN ---
Subjective - Date & Time of Evaluation Date of Evaluation: 07/06/18 Time of Evaluation: 06:25 - Subjective Subjective: Awake, alert, no distress Reason for consultation and follow up: Cardiac evaluation of palpitations, tachycardia and history of high cholesterol Seen and examined by me and Dr. Dwyer Objective - Vital Signs/Intake and Output Vital Signs (last 24 hours): Temp Pulse Resp BP Pulse Ox 98.3 F 88 20 94/62 L 98 07/06/18 05:45 07/06/18 05:45 07/06/18 05:45 07/06/18 05:45 07/06/18 05:45 Intake and Output: 07/06/18 07/06/18 06:59 18:59 Intake Total 120 Balance 120 - Medications Medications: Current Medications Atenolol (Tenormin) 25 mg PO DAILY [facility] Last Admin: 07/05/18 14:14 Dose: 25 mg Atorvastatin Calcium (Lipitor) 20 mg PO DIN [facility] Last Admin: 07/05/18 17:51 Dose: 20 mg Clozapine (Clozaril) 100 mg PO HS [facility]; Protocol Last Admin: 07/05/18 22:01 Dose: 100 mg Divalproex Sodium (Depakote Dr(*Bid*)) 500 mg PO BID [facility]; Protocol Last Admin: 07/05/18 17:51 Dose: 500 mg Famotidine (Pepcid) 40 mg PO HS [facility] Last Admin: 07/05/18 22:01 Dose: 40 mg Gabapentin (Neurontin) 100 mg PO HS [facility]; Protocol Last Admin: 07/05/18 22:01 Dose: 100 mg Lorazepam (Ativan) 0.5 mg PO BID [facility]; Protocol Last Admin: 07/05/18 17:52 Dose: 0.5 mg Ondansetron HCl (Zofran Inj) 4 mg IVP Q6 PRN PRN Reason: Nausea/Vomiting Polyethylene Glycol (Miralax) 17 gm PO DAILY [facility] Trazodone HCl (Desyrel) 50 mg PO HS [facility] Last Admin: 07/05/18 22:01 Dose: 50 mg Venlafaxine HCl (Effexor) 37.5 mg PO DAILY [facility] Last Admin: 07/05/18 09:55 Dose: 37.5 mg - Labs Labs: 07/05/18 06:45 07/05/18 06:45 PT 11.6 SECONDS (9.4-12.5) 07/04/18 14:50 INR 1.05 07/04/18 14:50 APTT 32.2 Seconds (26.9-38.3) 07/04/18 14:50 - Constitutional Appears: Non-toxic, No Acute Distress - Head Exam Head Exam: NORMAL INSPECTION, NORMOCEPHALIC - Eye Exam Eye Exam: Normal appearance Pupil Exam: NORMAL ACCOMODATION - ENT Exam ENT Exam: Mucous Membranes Moist, Normal Exam - Respiratory Exam Respiratory Exam: Decreased Breath Sounds, Clear to Ausculation Bilateral, NORMAL BREATHING PATTERN - Cardiovascular Exam Cardiovascular Exam: REGULAR RHYTHM, +S1, +S2 - GI/Abdominal Exam GI & Abdominal Exam: Soft, Normal Bowel Sounds - Extremities Exam Extremities Exam: Full ROM, Normal Capillary Refill - Neurological Exam Neurological Exam: Alert, Awake, Oriented x3 - Psychiatric Exam Psychiatric exam: Anxious - Skin Skin Exam: Dry, Normal Color, Warm Assessment and Plan - Assessment and Plan (Free Text) Assessment: A 52 year old feamle who came in to the ER due to palpitations. History of somatoform disorder, schizophrenia, GERD, high cholesterol. EKG showed NSR however when ambulating, heart rate goes up to 120-130's. Started on betablocker. Stress test and Echo today. Plan: For stress test today NPO post midnight For echo today Heart controlled at rest Blood pressure stable On Atenolol 25 mg daily,Lipitor 20 mg daily Continue current management Continue current medications Further recommendations after Stress test Will follow up Plan and treatment discussed with Dr. Dwyer
[2018-07-06] MEDS: Divalproex 500 mg DR(BID formulation) PO SCH ×3 (10:37→18:31)
[2018-07-06] MEDS: POLYETHYLENE GLYCOL 3350 17 GM/Dose PACKET PO SCH ×2 (10:38→11:40)
--- NOTE | 2018-07-06 11:09 | CP.PCM.PN ---
<Tessa Amor - Last Filed: 07/06/18 11:06> Subjective - Date & Time of Evaluation Date of Evaluation: 07/06/18 Time of Evaluation: 11:06 - Subjective Subjective: Tessa Amor, PGY2, GI Progress Note for Dr Sanders. Patient seen and examined at bedside. No acute events overnight. Patient reports BM yesterday night. Reports ongoing abdominal pain, denies nausea, vomiting, fevers, chills, diarrhea. Objective - Vital Signs/Intake and Output Vital Signs (last 24 hours): Temp Pulse Resp BP Pulse Ox 98.3 F 85 20 94/62 L 98 07/06/18 05:45 07/06/18 08:00 07/06/18 05:45 07/06/18 05:45 07/06/18 05:45 Intake and Output: 07/06/18 07/06/18 06:59 18:59 Intake Total 120 Balance 120 - Medications Medications: Current Medications Atenolol (Tenormin) 25 mg PO DAILY [facility] Last Admin: 07/06/18 10:38 Dose: Not Given Atorvastatin Calcium (Lipitor) 20 mg PO DIN [facility] Last Admin: 07/05/18 17:51 Dose: 20 mg Bisacodyl (Dulcolax) 5 mg PO ONCE ONE Stop: 07/06/18 16:01 Bisacodyl (Dulcolax) 5 mg PO ONCE ONE Stop: 07/07/18 08:01 Clozapine (Clozaril) 100 mg PO HS [facility]; Protocol Last Admin: 07/05/18 22:01 Dose: 100 mg Divalproex Sodium (Depakote Dr(*Bid*)) 500 mg PO BID [facility]; Protocol Last Admin: 07/06/18 10:37 Dose: Not Given Famotidine (Pepcid) 40 mg PO HS [facility] Last Admin: 07/05/18 22:01 Dose: 40 mg Gabapentin (Neurontin) 100 mg PO HS [facility]; Protocol Last Admin: 07/05/18 22:01 Dose: 100 mg Lorazepam (Ativan) 0.5 mg PO BID [facility]; Protocol Last Admin: 07/06/18 10:37 Dose: Not Given Ondansetron HCl (Zofran Inj) 4 mg IVP Q6 PRN PRN Reason: Nausea/Vomiting Polyethylene Glycol (Miralax) 17 gm PO DAILY [facility] Last Admin: 07/06/18 10:38 Dose: Not Given Trazodone HCl (Desyrel) 50 mg PO HS [facility] Last Admin: 07/05/18 22:01 Dose: 50 mg Venlafaxine HCl (Effexor) 37.5 mg PO DAILY [facility] Last Admin: 07/06/18 10:37 Dose: Not Given - Labs Labs: 07/05/18 06:45 07/05/18 06:45 PT 11.6 SECONDS (9.4-12.5) 07/04/18 14:50 INR 1.05 07/04/18 14:50 APTT 32.2 Seconds (26.9-38.3) 07/04/18 14:50 - Constitutional Appears: Non-toxic, No Acute Distress - Head Exam Head Exam: ATRAUMATIC, NORMOCEPHALIC - Eye Exam Eye Exam: EOMI, PERRL. absent: Conjunctival injection, Nystagmus, Scleral icterus Pupil Exam: NORMAL ACCOMODATION, PERRL. absent: Miosis, Mydriatic, Unequal - ENT Exam ENT Exam: Mucous Membranes Moist - Neck Exam Neck Exam: Full ROM - Respiratory Exam Respiratory Exam: Clear to Ausculation Bilateral, NORMAL BREATHING PATTERN. absent: Accessory Muscle Use, Wheezes, Respiratory Distress, Stridor - Cardiovascular Exam Cardiovascular Exam: RRR, +S1, +S2. absent: Murmur - GI/Abdominal Exam GI & Abdominal Exam: Soft, Tenderness (in bilateral lower quadrants), Normal Bowel Sounds. absent: Distended, Guarding, Rigid, Mass, Organomegaly, Rebound - Extremities Exam Extremities Exam: Normal Inspection. absent: Pedal Edema - Neurological Exam Neurological Exam: Alert, Awake, Oriented x3 - Psychiatric Exam Psychiatric exam: Normal Mood - Skin Skin Exam: Dry, Normal Color, Warm Assessment and Plan - Assessment and Plan (Free Text) Assessment: # Abdominal pain 2/2 likely chronic constipation, r/o ovarian/uterine pathology # Palpitations # Somatoform disorder # Schizophrenia - Prior EGD 12/2012 for similar symptoms documented in pathology report to show H pylori negative gastritis. [place] [facility] [place]. - CT A/P 12/2012- constipation, no acute pathology - ordered 1/2 gallon of Golytely with 2 dulcolax - ordered pelvic US, r/o uterine/ovarian pathology - If abdominal pain does not improve after bowel regimen and no organic cause found on pelvic US, will consider endoscopy. - counselled on increased fiber and water intake - Further recs per Dr Sanders. Case seen and discussed with Dr Sanders. <Aydin Sanders V - Last Filed: 07/06/18 22:24> Objective - Vital Signs/Intake and Output Vital Signs (last 24 hours): Temp Pulse Resp BP Pulse Ox 97.8 F 99 H 18 114/77 97 07/06/18 17:59 07/06/18 18:00 07/06/18 17:59 07/06/18 17:59 07/06/18 11:30 - Medications Medications: Current Medications Atenolol (Tenormin) 25 mg PO DAILY [facility] Last Admin: 07/06/18 11:41 Dose: 25 mg Atorvastatin Calcium (Lipitor) 20 mg PO DIN [facility] Last Admin: 07/06/18 18:30 Dose: 20 mg Bisacodyl (Dulcolax) 5 mg PO ONCE ONE Stop: 07/07/18 08:01 Clozapine (Clozaril) 100 mg PO HS [facility]; Protocol Last Admin: 07/06/18 21:38 Dose: 100 mg Divalproex Sodium (Depakote Dr(*Bid*)) 500 mg PO BID [facility]; Protocol Last Admin: 07/06/18 18:31 Dose: 500 mg Famotidine (Pepcid) 40 mg PO HS [facility] Last Admin: 07/06/18 21:38 Dose: 40 mg Gabapentin (Neurontin) 100 mg PO HS [facility]; Protocol Last Admin: 07/06/18 21:38 Dose: 100 mg Lorazepam (Ativan) 0.5 mg PO BID [facility]; Protocol Last Admin: 07/06/18 18:30 Dose: 0.5 mg Ondansetron HCl (Zofran Inj) 4 mg IVP Q6 PRN PRN Reason: Nausea/Vomiting Polyethylene Glycol (Miralax) 17 gm PO DAILY [facility] Last Admin: 07/06/18 11:40 Dose: 17 gm Trazodone HCl (Desyrel) 50 mg PO HS [facility] Last Admin: 07/06/18 21:38 Dose: 50 mg Venlafaxine HCl (Effexor) 37.5 mg PO DAILY [facility] Last Admin: 07/06/18 11:41 Dose: 37.5 mg - Labs Labs: 07/06/18 13:33 07/06/18 13:33 PT 11.6 SECONDS (9.4-12.5) 07/04/18 14:50 INR 1.05 07/04/18 14:50 APTT 32.2 Seconds (26.9-38.3) 07/04/18 14:50 Attending/Attestation - Attestation I have personally seen and examined this patient.: Yes I have fully participated in the care of the patient.: Yes I have reviewed all pertinent clinical information, including history, physical exam and plan: Yes Notes (Text): This is an addendum to the GI progress report dictated by the emergency medical technician basic. This patient was seen and evaluated along with the resident earlier today. Patient did have a bladder scan done which showed a no significant residual however it was found to be distended in the CAT scan. Significant constipation. On MiraLAX will start the patient on GoLYTELY half a gallon with the Dulcolax Also requested for a pelvic ultrasound and also an abdominal ultrasound to further evaluate his abdominal distention and discomfort. Patient may benefit from elective endoscopy evaluation continue PPI cardiac follow-up 07/06/18 22:22
[2018-07-06] MEDS ORDERED: NuLYTELY (NACL/NAHCO3/KCL/PEG) 4L PO ONE ×2 (13:00)
--- NOTE | 2018-07-06 13:05 | CP.PCM.PCO ---
Additional Comments - Additional Comments Additional Comments: 52 y/o F, PMHx somatoform disorder, schizophrenia, HLD, GERD arrived to ED with c/o palpitations. Family states, patient recently had an increase in medication dosage, Clozapine 75mg 125mg and has been experiencing the symptoms since then. Patient also reports headache and constipation. Cardiology consulted patient started on a beta-dain, stress test results and echo result pending, GI consulted placed on bowel regiment pelvis US pending, psychiatry note reviewed.
[2018-07-06 13:36] LABS: HEMOGLOBIN 12.7 g/dL (12.0-16.0); MEAN CELL VOLUME 94.6 fl (80.0-105.0); MEAN CORPUSCULAR HGB CONC 31.8 g/dl (31.0-37.0); MEAN PLATELET VOLUME 9.5 fl (7.0-11.0); RBC 4.23 10^6/uL (3.5-6.1); WHITE BLOOD COUNT 7.5 10^3/uL (4.5-11.0)
[2018-07-06 13:55] LABS: ALB/GLOB RATIO 1.4 (1.1-1.8); ALBUMIN 4.1 g/dL (3.0-4.8); ALT/SGPT 61 U/L (7-56); AST/SGOT 37 U/L (14-36); BLOOD UREA NITROGEN 11 mg/dL (7-21); CALCIUM 9.2 mg/dL (8.4-10.5); GFR NON-AFRICAN AMERICAN > 60
--- NOTE | 2018-07-06 14:12 | US ---
Date of service: 07/06/2018 HISTORY: abdominal pain, r/o ovarian/uterine abnormalities COMPARISON: None available. TECHNIQUE: Transabdominal pelvic ultrasound was performed FINDINGS: UTERUS: Measures 6.1 x 2.4 x 2.9 cm. Anteverted, normal in size and appearance. No fibroid or other mass lesion seen. ENDOMETRIUM: Measures 6.0 mm in diameter. Normal in appearance. CERVIX: No cervical abnormality identified. RIGHT OVARY: Measures 1.8 x 0.9 x 1.5 cm. No solid mass. Normal flow. LEFT OVARY: Measures 0.7 x 0.7 x 1.8 cm. No solid mass. Normal flow. FREE FLUID: No significant free fluid noted. OTHER FINDINGS: None. IMPRESSION: Unremarkable pelvic ultrasound.
[2018-07-06] MEDS ORDERED: Bisacodyl 5mg EC Tab PO ONE ×2 (16:00→18:00)
--- NOTE | 2018-07-06 21:50 | CARD ---
APPROVED REPORT Date of service: 07/06/2018 Protocol: LEXISCAN Test Type: Lexiscan Sestamibi Stress Test Attending Physician: Dr. Tom Dwyer Referring Physician: Dr. Cyndi Butler Test Indications: Palpitations, sinus tachycadia Height:5 ft 2 in Weight:149lbs Medications: tenormin, ipitor, clozaril, depakote pepcid, neurintin, ativan Medical History: 52 year old female with h/o high cholesterol, schizophrenia, anxiety, depression, abdominal pain and constipation Target HR: 168 bpm Resting ECG: RSR. Resting Heart Rate: 81 bpm Resting Blood Pressure: 110/62mmHg Submaximum (85%): 143 bpm PROCEDURE Pharmacologic stress testing was performed using 0.4mg per 5ml of regadenoson given intravenously over 7-10 seconds. POST EXERCISE Reason for Termination: Protocol completed Target HR: No Max HR: 68 bpm 67% of Maximum Predicted HR: 168 bpm Exercise duration: 00:32 min:sec, 0 Stage Exercise capacity: 1.0METs Max Blood Pressure: 110/62mmHg Blood Pressure response to exercise: normal resting BP - appropriate response Heart Rate response to exercise: appropriate Chest Pain: No, none Angina index: 0 Arrhythmia: No, none ST Change: No, none Deviation: 0 mm TEST SUMMARY [id number]/62.0. INFUSIONDOSE 100:[id number]/.0. [id number]. INTERPRETATION Stress EKG Conclusion: IV LEXISCAN NUCLEAR STRESS TEST NEGATIVE FOR CHEST PAIN AND NEGATIVE FOR ST-T CHANGES. NUCLEAR SCAN REPORT PENDING. Signed by Tom Dwyer Electronically Approved: 07/06/2018 13:06:51 EXAM: Myocardial Perfusion REST/STRESS Stress Test Type: Pharmacologic Imaging Protocol The imaging protocol used to acquire images was Rest Tc-99m/stress Tc-99m 1 day Rest Spect myocardial perfusion imaging was performed in supine position 45 minutes following the injection of 10.3 mCi of Tc-99 Myoview. At peak stress, the patient was injected intravenously with 30.5mCi of Tc-99 tetrofosmin after an infusion time of 0 minutes and 10 seconds. Gated Stress Spect was performed 65 minutes after intravenous Tc-99 Myoview injection. The images were gated to evaluate regional wall motion and calculate ventricular ejection fraction.Images were reconstructed using backfilter projection method in short horizontal and verticle long axis. Spect slices were generated. LV Perfusion The quality of the study is good. The left ventricle is normal in size. The right ventricle is unremarkable. The lung uptake is normal. The distribution of tracer reveals moderately decreased perfusion involving mid to distal anterior and apical benitez on the stress study. The remainder of the LV myocardium is unremarkable. The rest myocardial perfusion study shows no significant change. Wall Motion Wall motion study shows good contractility of the left ventricle. LVEF = 64%. Conclusion 1. Essentially normal SPECT myocardial perfusion study. 2. Fixed, anterior and apical ddefcts are defect is most likely due to breast attenuation. 3. Normal gated wall motion of the left ventricle.
--- NOTE | 2018-07-06 22:26 | CARD ---
APPROVED REPORT Date of service: 07/06/2018 EXAM: Two-dimensional and M-mode echocardiogram with Doppler and color Doppler. INDICATION Chest Pain 2D DIMENSIONS Left Atrium (2D)3.0 (1.6-4.0cm)IVSd0.9 (0.7-1.1cm) LVDd3.7 (3.9-5.9cm)PWd1.1 (0.7-1.1cm) LVDs2.7 (2.5-4.0cm)FS (%) 27.4 % LVEF (%)54.2 (>50%) M-Mode DIMENSIONS Aortic Root2.90 (2.2-3.7cm)Aortic Cusp Exc.2.00 (1.5-2.0cm) Aortic Valve AoV Peak Pvepfnrx054.0cm/[place] GR.6mmHg Mitral Valve MV E Msgqsxef17.2cm/sMV A Ntqqiczg75.4cm/sE/A ratio0.9 TDI Lateral E' Peak V8.77cm/sMedial E' Peak V6.73cm/sE/Lateral E'6.8 E/Medial E'8.8 Tricuspid Valve TR Peak [id number]/sRAP [id number] Peak Gr.16mmHg [id number] LEFT VENTRICLE The left ventricle is normal size. The left ventricular function is normal. The left ventricular ejection fraction is within the normal range.Ej.Fr: 55%. Tissue Doppler imaging reveals mild left ventricular diastolic dysfunction. RIGHT VENTRICLE The right ventricle is normal size. The right ventricular systolic function is normal. ATRIA The left atrium size is normal. The right atrium size is normal. AORTIC VALVE The aortic valve is normal in structure. MITRAL VALVE The mitral valve is normal in structure. Mitral regurgitation is trace. TRICUSPID VALVE The tricuspid valve is normal in structure. There is trace tricuspid regurgitation. PULMONIC VALVE Pulmonic Valve shows Trace Regurge. PERICARDIAL EFFUSION There is no pericardial effusion. <Conclusion> The left ventricle is normal size. LV Systolic Function Normal. LV Ej.Fr: 55%. Tissue Doppler imaging reveals mild left ventricular diastolic dysfunction. The right ventricle is normal size. The right ventricular systolic function is normal. The left atrium size is normal. The right atrium size is normal. The aortic valve is normal in structure. The mitral valve is normal in structure. Mitral regurgitation is trace. Tricuspid Valve Normal in Structure. Trace Tricuspid Regurge. Pulmonic Valve shows Trace Regurge. There is no pericardial effusion.
--- NOTE | 2018-07-07 00:19 | PN ---
DATE: 07/06/2018 This note is being dictated without the ability to get into medical records due to yet another computer freeze. Case reviewed with nursing. SUBJECTIVE: The patient is a 52-year-old white female whose actual diagnosis remains enigmatic but which includes the possibility of a developmental disability, schizophrenia, and somatic symptom disorder, either as a manifestation of her schizophrenia or independent of it. In any event, she remains alert, oriented and very somatically preoccupied. She is presently complaining about abdominal pain, diarrhea and headache. Prior to her sustained hospitalization in a state hospital (where she was for several years until recent months when she was discharged to a correction, living in her parents' home on the weekend, involved in a day program), her symptom complex also included such somatization. It is this clinician's observation and belief that this is an expression of psychic distress but redirected subconsciously so that the patient does not have to deal with the emotional aspects of whatever conflictual issue she is dealing with. Given her poor insight, poor motivation (but which does include some attention seeking behavior), this is likely that she will remain problematic in her somatization. From a clinical perspective, interpretation of symptoms needs to also include such a cautionary note. Thiago Valentino MD/ PhD
--- NOTE | 2018-07-07 02:29 | PN ---
DATE: 07/06/2018 SUBJECTIVE: The patient was seen and examined at the bedside on 07/06/2018, sitting on the bed, getting ready to go for test. Still complaining about abdominal pain, headache, palpitation. No fever, no chills. No hematemesis. No hematochezia. No dizziness. No nausea or vomiting. No diarrhea. PHYSICAL EXAMINATION: VITAL SIGNS: Temperature 98.3, pulse 88, respiratory rate 20, blood pressure 94/62, pulse oximetry 98. HEENT: Head: Normocephalic and atraumatic. Eyes: PERRLA. Extraocular muscles are intact. Conjunctivae clear. Nose patent. Mucus membrane moist. NECK: Supple. No carotid bruits. No JVD or thyromegaly. CHEST: Bilaterally symmetrical. HEART: S1 and S2 positive. LUNGS: Clear to auscultation. ABDOMEN: Soft. Bowel sounds present. No organomegaly. EXTREMITIES: No edema. No cyanosis. NEUROLOGIC: The patient is awake, alert. Moving all 4 extremities. No focal deficits. MEDICATIONS: Tenormin, atorvastatin, clonazepam, Depakote, Pepcid, Neurontin, Ativan, Zofran, MiraLax, trazodone, Effexor. LABORATORY DATA: White blood cells 7.6, hemoglobin 12.5, hematocrit 38.9, platelets 256. Sodium 141, potassium 3.5, BUN 10, creatinine 0.5, glucose 92. ASSESSMENT AND PLAN: Ms. Rodney Pritchard is a 52-year-old lady with hypokalemia, has palpitation, history of somatoform disorder. Dr. Valentino is the patient's psychiatrist. Has schizophrenia and gastroesophageal reflux disease, dyspepsia, hypercholesterolemia. EKG shows normal sinus rhythm. However, when ambulating, heart rate goes up to 120 to 130. Started beta blockers by Cardiology. Stress test and echo done, the results are pending. Blood pressure is stable. Continue present treatment. Reviewed Dr. Dwyer's notes. Gastroenterology consult also called with Dr. Sanders. According to Gastroenterology, abdominal pain looks like due to chronic constipation, rule out ovarian uterine pathology, so she went for ultrasound, results are pending. The patient had a prior EGD done in 2012 for similar symptoms, documented in the pathology report show H. Pylori negative gastritis. The patient had colonoscopy done in 2017 as per pt , normal. No acute pathology noted, and according to Gastroenterology, if ultrasounds are normal, and the patient still continue to have pain, then may be, they will do endoscopy. Increase fiber diet, increase water intake, appreciated nurse practitioner's communication report. Family states that the patient instantly had increase in medication dose, clonazepam from 75 to 125, and according to the patient, she experienced the symptoms since then. Gastroenterology, Cardiology, and Psych notes are noted. Discussion done with the patient, out of bed, physical therapy. We will follow. Cyndi Butler MD MTDD
[2018-07-07 05:52] VITALS: O2SAT 93
--- NOTE | 2018-07-07 07:08 | CP.PCM.PN ---
<Ping Maqrues - Last Filed: 07/07/18 07:08> Subjective - Date & Time of Evaluation Date of Evaluation: 07/07/18 Time of Evaluation: 07:05 - Subjective Subjective: Gastroenterology Fellow/PGY6 Progress Note for Dr. Sanders Tolerated diet. Admits to improving abdominal pain. Patient notes one bowel movement yesterday. A 12-point review of systems negative except for as above. Objective - Vital Signs/Intake and Output Vital Signs (last 24 hours): Temp Pulse Resp BP Pulse Ox 98.2 F 94 H 18 102/67 93 L 07/07/18 05:52 07/07/18 05:52 07/07/18 05:52 07/07/18 05:52 07/07/18 05:52 Intake and Output: 07/07/18 07/07/18 06:59 18:59 Intake Total 240 Balance 240 - Medications Medications: Current Medications Atenolol (Tenormin) 25 mg PO DAILY [facility] Last Admin: 07/06/18 11:41 Dose: 25 mg Atorvastatin Calcium (Lipitor) 20 mg PO DIN [facility] Last Admin: 07/06/18 18:30 Dose: 20 mg Bisacodyl (Dulcolax) 5 mg PO ONCE ONE Stop: 07/07/18 08:01 Clozapine (Clozaril) 100 mg PO HS [facility]; Protocol Last Admin: 07/06/18 21:38 Dose: 100 mg Divalproex Sodium (Depakote Dr(*Bid*)) 500 mg PO BID [facility]; Protocol Last Admin: 07/06/18 18:31 Dose: 500 mg Famotidine (Pepcid) 40 mg PO [facility] Last Admin: 07/06/18 21:38 Dose: 40 mg Gabapentin (Neurontin) 100 mg PO HS [facility]; Protocol Last Admin: 07/06/18 21:38 Dose: 100 mg Lorazepam (Ativan) 0.5 mg PO BID [facility]; Protocol Last Admin: 07/06/18 18:30 Dose: 0.5 mg Ondansetron HCl (Zofran Inj) 4 mg IVP Q6 PRN PRN Reason: Nausea/Vomiting Polyethylene Glycol (Miralax) 17 gm PO DAILY [facility] Last Admin: 07/06/18 11:40 Dose: 17 gm Trazodone HCl (Desyrel) 50 mg PO [facility] Last Admin: 07/06/18 21:38 Dose: 50 mg Venlafaxine HCl (Effexor) 37.5 mg PO DAILY [facility] Last Admin: 07/06/18 11:41 Dose: 37.5 mg - Labs Labs: 07/06/18 13:33 07/06/18 13:33 PT 11.6 SECONDS (9.4-12.5) 07/04/18 14:50 INR 1.05 07/04/18 14:50 APTT 32.2 Seconds (26.9-38.3) 07/04/18 14:50 - Constitutional Appears: Non-toxic, No Acute Distress - Head Exam Head Exam: ATRAUMATIC, NORMOCEPHALIC - Eye Exam Eye Exam: EOMI, PERRL. absent: Scleral icterus Pupil Exam: PERRL. absent: Miosis, Mydriatic - ENT Exam ENT Exam: Mucous Membranes Moist, Normal Oropharynx - Neck Exam Neck Exam: Full ROM, Normal Inspection - Respiratory Exam Respiratory Exam: Clear to Ausculation Bilateral. absent: Rales, Rhonchi, Wheezes - Cardiovascular Exam Cardiovascular Exam: RRR, +S1, +S2. absent: Gallop, Rubs - GI/Abdominal Exam GI & Abdominal Exam: Soft, Tenderness, Normal Bowel Sounds. absent: Distended, Firm, Guarding, Rigid, Organomegaly, Rebound - Extremities Exam Extremities Exam: Full ROM, Normal Inspection - Neurological Exam Neurological Exam: Alert, Awake - Psychiatric Exam Psychiatric exam: Anxious, Normal Affect - Skin Skin Exam: Dry, Intact, Normal Color, Warm Assessment and Plan - Assessment and Plan (Free Text) Assessment: 52 year old female with PMH of Somatoform disorder, Schizophrenia, Psychosis, and constipation presenting with palpitations. GI consultation for abdominal pain. Prior EGD 12/2012 for similar symptoms documented in pathology report to show H pylori negative gastritis. Prior colonoscopy 2017 at [facility] endorsed to be normal. Plan: -continue bowel regimen for constipation -4/3 received 2 Liters of Nulytely and Dulcolax- loose BM overnight -continue Miralax 17g daily -follow up Pelvic U/S for distended bladder -regular diet -avoid NSAIDs -contue Pepcid QHS and PPI ACB -will follow clinical course <Aydin Sanders V - Last Filed: 07/08/18 00:41> Objective - Vital Signs/Intake and Output Vital Signs (last 24 hours): Temp Pulse Resp BP Pulse Ox 97.9 F 75 19 107/71 93 L 07/07/18 12:00 07/07/18 12:00 07/07/18 12:00 07/07/18 12:00 07/07/18 05:52 - Labs Labs: 07/06/18 13:33 07/07/18 06:45 PT 11.6 SECONDS (9.4-12.5) 07/04/18 14:50 INR 1.05 07/04/18 14:50 APTT 32.2 Seconds (26.9-38.3) 07/04/18 14:50 Attending/Attestation - Attestation I have personally seen and examined this patient.: Yes I have fully participated in the care of the patient.: Yes I have reviewed all pertinent clinical information, including history, physical exam and plan: Yes Notes (Text): This patient was seen and evaluated here earlier along with the resident. Patient did have bowel movements and also ordered a good amount of urine Patient was [facility] had a colonoscopy and endoscopy done and also sonogram. We will review the previous workup with the PCP. Advised to pured diet 07/08/18 00:36
[2018-07-07 07:56] LABS: ALBUMIN 3.6 g/dL (3.0-4.8); BLOOD UREA NITROGEN 14 mg/dL (7-21); CALCIUM 8.8 mg/dL (8.4-10.5); GFR NON-AFRICAN AMERICAN > 60
[2018-07-07 07:57] LABS: ALB/GLOB RATIO 1.4 (1.1-1.8); ALT/SGPT 72 U/L (7-56); AST/SGOT 38 U/L (14-36)
[2018-07-07] MEDS ORDERED: Bisacodyl 5mg EC Tab PO ONE (08:00)
[2018-07-07] MEDS: Divalproex 500 mg DR(BID formulation) PO SCH (09:33)
[2018-07-07] MEDS: POLYETHYLENE GLYCOL 3350 17 GM/Dose PACKET PO SCH (09:34)
--- NOTE | 2018-07-07 09:37 | CP.PCM.PN ---
Subjective - Date & Time of Evaluation Date of Evaluation: 07/07/18 Time of Evaluation: 06:50 - Subjective Subjective: Awake, alert, no distress Reason for consultation and follow up: Cardiac evaluation of palpitations, tachycardia and history of high cholesterol Seen and examined by me and Dr. Parsons Objective - Vital Signs/Intake and Output Vital Signs (last 24 hours): Temp Pulse Resp BP Pulse Ox 98.2 F 84 18 105/69 93 L 07/07/18 05:52 07/07/18 09:33 07/07/18 05:52 07/07/18 09:33 07/07/18 05:52 Intake and Output: 07/07/18 07/07/18 06:59 18:59 Intake Total 240 Balance 240 - Medications Medications: Current Medications Atenolol (Tenormin) 25 mg PO DAILY [facility] Last Admin: 07/07/18 09:33 Dose: 25 mg Atorvastatin Calcium (Lipitor) 20 mg PO DIN [facility] Last Admin: 07/06/18 18:30 Dose: 20 mg Clozapine (Clozaril) 100 mg PO HS [facility]; Protocol Last Admin: 07/06/18 21:38 Dose: 100 mg Divalproex Sodium (Depakote Dr(*Bid*)) 500 mg PO BID [facility]; Protocol Last Admin: 07/07/18 09:33 Dose: 500 mg Famotidine (Pepcid) 40 mg PO HS [facility] Last Admin: 07/06/18 21:38 Dose: 40 mg Gabapentin (Neurontin) 100 mg PO HS [facility]; Protocol Last Admin: 07/06/18 21:38 Dose: 100 mg Lorazepam (Ativan) 0.5 mg PO BID [facility]; Protocol Last Admin: 07/07/18 09:33 Dose: 0.5 mg Ondansetron HCl (Zofran Inj) 4 mg IVP Q6 PRN PRN Reason: Nausea/Vomiting Pantoprazole Sodium (Protonix Ec Tab) 40 mg PO 0600 [facility] Polyethylene Glycol (Miralax) 17 gm PO DAILY [facility] Last Admin: 07/07/18 09:34 Dose: Not Given Trazodone HCl (Desyrel) 50 mg PO HS [facility] Last Admin: 07/06/18 21:38 Dose: 50 mg Venlafaxine HCl (Effexor) 37.5 mg PO DAILY [facility] Last Admin: 07/07/18 09:33 Dose: 37.5 mg - Labs Labs: 07/06/18 13:33 07/07/18 06:45 PT 11.6 SECONDS (9.4-12.5) 07/04/18 14:50 INR 1.05 07/04/18 14:50 APTT 32.2 Seconds (26.9-38.3) 07/04/18 14:50 - Constitutional Appears: Non-toxic, No Acute Distress - Head Exam Head Exam: NORMAL INSPECTION, NORMOCEPHALIC - Eye Exam Eye Exam: Normal appearance Pupil Exam: NORMAL ACCOMODATION - ENT Exam ENT Exam: Mucous Membranes Moist, Normal Exam - Neck Exam Neck Exam: Full ROM, Normal Inspection - Respiratory Exam Respiratory Exam: Decreased Breath Sounds, Clear to Ausculation Bilateral, NORMAL BREATHING PATTERN - Cardiovascular Exam Cardiovascular Exam: REGULAR RHYTHM, +S1, +S2 - GI/Abdominal Exam GI & Abdominal Exam: Soft, Normal Bowel Sounds - Neurological Exam Neurological Exam: Alert, Awake, Oriented x3 - Psychiatric Exam Psychiatric exam: Normal Affect, Normal Mood - Skin Skin Exam: Dry, Normal Color, Warm Assessment and Plan - Assessment and Plan (Free Text) Assessment: A 52 year old female who came in to the ER due to palpitations. History of somatoform disorder, schizophrenia, GERD, high cholesterol. EKG showed NSR however when ambulating, heart rate goes up to 120-130's. Started on betablocker. Had stress test done and showed normal results, no ischemia. Echo done and showed LVEF 55%,trace MR, mild LV diastolic dysfunction. Heart rate controlled. Continue betablocker. Discharge planning. Followed up by GI and Psychiatry. Will discontinue telemetry. Plan: Denies distress Heart controlled Blood pressure stable Cardiac status stable On Atenolol 25 mg daily,Lipitor 20 mg daily Continue current management Continue current medications Will discontinue telemetry Discharge planning Will follow up Plan and treatment discussed with
--- NOTE | 2018-07-07 12:01 | CP.PCM.PCO ---
Additional Comments - Additional Comments Additional Comments: patient cleared for discharge by psych, GI and cardiology [id number] with ambulation
[2018-07-07 12:29] VITALS: BP 107/71; PULSE 75; RESP 19; TEMP 97.9
[2018-07-08] MEDS ORDERED: Pantoprazole 40 mg EC Tab PO SCH (06:00)
--- NOTE | 2018-07-08 08:17 | DS ---
Patient was seen and examined at the bedside on 07/07/2018. CHIEF COMPLAINT: Palpitation. HISTORY OF PRESENT ILLNESS: Ms. Francheska Stevens is a 52 years old female with past medical history of somatoform disorder, psychosis, schizophrenia, came to the emergency department accompanied with the family for evaluation of the palpitation since last week. As per family, patient had increase in the medication doses of clonazepam from 75 mg to [address] Valentino and after that patient started all these symptoms. We admitted the patient, did chest x-rays, abdominal x-rays, abdomen and pelvis CT, myocardial stress test done. Seen by Dr. Issa Marino, dry clipper tender; Dr. Thiago Valentino, psychiatrist; Dr. Sanders, GI. Patient improved. Cleared by the Psychiatry, GI and Cardiology. Family was on the bedside. Discharged home. Followup with the primary care physician and psychiatry as outpatient. PAST MEDICAL HISTORY: Gastric reflux disease, schizophrenia. FAMILY HISTORY: Father and mother noncontributory. HABITS: No smoking, no drugs, no ethanol. ALLERGIES: THE PATIENT IS NOT ALLERGIC WITH ANY MEDICATIONS. HOME MEDICATIONS: Reviewed by me. REVIEW OF SYSTEMS: Patient was seen and examined at the bedside, looking comfortable. No fever, no chills, no hematuria or hematochezia. No headache or dizziness. No chest pain or palpitation. PHYSICAL EXAMINATION: VITAL SIGNS: Temperature 98.2, pulse 94, respiratory rate 18, blood pressure 107/57, pulse oxymetry of 93%. HEENT: Head; normocephalic, atraumatic. Eyes; PERRLA. Extraocular muscles intact. Conjunctiva clear. Nose patent. Mucous membrane moist. NECK: Supple. No carotid bruit, no thyromegaly. CHEST: Bilaterally symmetrical. HEART: S1, S2 positive. LUNGS: Clear to auscultation. ABDOMEN: Soft, bowel sounds present. No organomegaly. EXTREMITIES: No edema, no cyanosis. NEUROLOGIC: Patient awake, alert. Moving all four extremities. No focal deficit. MEDICATIONS: Tenormin, Lipitor, Dulcolax, Clozaril, Depakote, Pepcid, Neurontin, Ativan, Zofran, MiraLax, Effexor. LABORATORY DATA: White blood cells 7.5, hemoglobin 12.7, hematocrit 40, platelets 266. Sodium 139, potassium 4.2, BUN 11, creatinine 0.7, glucose 124. ASSESSMENT AND PLAN: Ms. Francheska Stevens is a 52 years old lady with past medical history of somatoform disorder, schizophrenia, psychosis, constipation, pain with palpitation. Gastroenterology consult was called for abdominal pain. esophagogastroduodenoscopy done. Pathology report shows Helicobacter pylori negative gastritis. Prior colonoscopy was in 2017 at [facility]. Patient had abnormal liver function test. Stress test was done. Seen by the psychiatrist. Stress test was essentially normal. Single-photon emission computed tomography myocardial perfusion study, fixed anterior and apical defects are most likely due to breast attenuation, normal due to wall motion of the left ventricle as per Chest, abdomen and pelvis, no changes by me. Gastroesophageal reflux disease, dyspepsia. Discussion done with the family and Nurse practitioner . Discharged home. Follow up as outpatient. Cyndi Butler MD MTDD
== END 2018-07-07 16:14 | disposition home or self-care (01) | DRG 310 ==
LOC: ED 14:21 → ERH 18:17 → 2RSO 07-05 03:42 → OBSVTOIN 07-06 21:27
PROVIDERS: ADMIT Internal Medicine; ATTEND Internal Medicine
DX: R00.2 Palpitations (principal); R07.9 Chest pain, unspecified; K59.09 Other constipation; F45.9 Somatoform disorder, unspecified; F20.9 Schizophrenia, unspecified; K21.9 Gastro-esophageal reflux disease without esophagitis; R62.50 Unspecified lack of expected normal physiological development in childhood; E78.00 Pure hypercholesterolemia, unspecified; R00.0 Tachycardia, unspecified; E87.6 Hypokalemia; G43.909 Migraine, unspecified, not intractable, without status migrainosus; R73.9 Hyperglycemia, unspecified; E78.5 Hyperlipidemia, unspecified; F22 Delusional disorders

== ENCOUNTER 2018-07-23 10:38 | Outpatient (CLI) | payer MEDICARE, MEDICAID | END 2018-07-23 10:39 | disposition home or self-care (01) | LOC: RAD 10:38 | DX: Z12.31 Encounter for screening mammogram for malignant neoplasm of breast (principal); Z13.820 Encounter for screening for osteoporosis ==